=== PATIENT | female | born 1965 | race Caucasian/White ===

== ENCOUNTER 2018-01-23 02:09 | Emergency (ER) | payer MEDICAID ==
[~2018-01-23] VITALS: Ht 160 cm; Wt 67.0 kg
[~2018-01-23 02:09] MED LIST: ALBU8.5H4 IH; NO HOME MEDS
[2018-01-23 02:12] VITALS: BP 98/60
[2018-01-23] MEDS ORDERED: NAPR-56 PO ×2 (03:04→03:32)
[2018-01-23] MEDS ORDERED: naproxen 500mg tablet PO ONE (03:20)
[2018-01-23] MEDS ORDERED: HYDROcodone/acetaminophen 10/325mg tab PO ONE (03:20)
[2018-01-23] MEDS ORDERED: cyclobenzaprine 10mg tablet PO ONE (03:30)
[2018-01-23] MEDS ORDERED: CYCL-1 PO (03:32)
[2018-01-23] MEDS ORDERED: HYDR-4383 PO (03:32)
== END 2018-01-23 03:43 | disposition home or self-care (01) ==
LOC: ER 02:10
DX: S20.211A Contusion of right front wall of thorax, initial encounter (principal); Z79.899 Other long term (current) drug therapy; V19.9XXA Pedal cyclist (driver) (passenger) injured in unspecified traffic accident, initial encounter; Y93.89 Activity, other specified; Y92.488 Other paved roadways as the place of occurrence of the external cause; Y99.8 Other external cause status
CPT/HCPCS: 71100; 99284

== ENCOUNTER 2019-05-19 17:11 | Emergency (ER) | payer MEDICAID ==
[~2019-05-19] VITALS: Ht 157.5 cm; Wt 80.0 kg
[~2019-05-19 17:11] MED LIST changes: +CYCL-1 PO; +HYDR-4383 PO
[2019-05-19] MEDS ORDERED: ondansetron/PF 4mg/2ml inj IV ONE (17:40)
[2019-05-19] MEDS ORDERED: normal saline 1000ml 1,000 ML IV ONE (17:40)
[2019-05-19] MEDS ORDERED: morphine 4 MG/ML inj SYRINge IV ONE (17:40)
[2019-05-19 18:16] LABS: URINE HCG NEGATIVE (NEG)
[2019-05-19 18:16] LABS: BASOPHILS # (AUTO) 0.1 X10'3 (0-0.2); BASOPHILS % (AUTO) 0.7 % (0-1); EOSINOPHILS % (AUTO) 0.1 % (0-6); HEMATOCRIT 40.9 % (35.0-45.0); HEMOGLOBIN 13.8 g/dl (12.0-16.0); LYMPHOCYTES # (AUTO) 0.7 X10'3 (1.1-4.8); LYMPHOCYTES % (AUTO) 3.8 % (21-51); MEAN CORPUSCULAR HEMOGLOBIN 31.1 PG (27.0-31.0); MEAN CORPUSCULAR HGB CONC 33.7 g/dL (33.0-36.5); MEAN CORPUSCULAR VOLUME 92.1 FL (78-98); MONOCYTES # (AUTO) 0.6 X10'3 (0-0.9); MONOCYTES % (AUTO) 3.6 % (2-12); NEUTROPHILS # (AUTO) 16.4 X10'3 (1.8-7.7); NEUTROPHILS % (AUTO) 91.8 % (42-75); PLATELET COUNT 293 X10'3 (140-440); RED BLOOD COUNT 4.44 X10'6 (4.20-5.60); RED CELL DISTRIBUTION WIDTH 13.4 % (11.5-14.5); WHITE BLOOD COUNT 17.8 X10'3 (4.5-11.0)
[2019-05-19 18:17] LABS: CLARITY,URINE CLEAR (Clear); COLOR,URINE YELLOW (Yellow); GLUCOSE, URINE NEGATIVE (Neg); KETONES,URINE NEGATIVE (Neg); LEUKOCYTE ESTERASE ,URINE NEGATIVE (Neg); NITRITES, URINE NEGATIVE (Neg); OCCULT BLOOD,URINE MODERATE (Neg); PROTEIN,URINE NEGATIVE (Neg); UROBILINOGEN,URINE 0.2 E.U/dL (0.2-1.0)
[2019-05-19 18:20] LABS: UA COLLECTION TYPE CLN CATCH MIDSTREAM
[2019-05-19 18:25] LABS: BACTERIA,URINE FEW /HPF (Neg); SQUAMOUS EPITHELIAL CELL,UR FEW /LPF (FEW); WBC,URINE 0-4 /HPF (0-4)
[2019-05-19 18:30] LABS: ALANINE AMINOTRANSFERASE 25 U/L (12-78); ALBUMIN 3.7 G/DL (3.4-5.0); ALBUMIN/GLOBULIN RATIO 1.1 (1.1-1.5); ALKALINE PHOSPHATASE 71 IU/L (46-116); ANION GAP 7 (8-16); ASPARTATE AMINO TRANSFERASE 26 U/L (10-37); BILIRUBIN,TOTAL 0.4 MG/DL (0.1-1.0); BLOOD UREA NITROGEN 11 MG/DL (7-18); BUN/CREATININE RATIO 15.1 (6.6-38.0); CALCIUM 9.2 MG/DL (8.5-10.1); CHLORIDE 104 MMOL/L (99-107); CREATININE 0.73 MG/DL (0.40-0.90); GLUCOSE 114 MG/DL (70-104); LIPASE 108 U/L (73-393); POTASSIUM 3.9 MMOL/L (3.5-5.1); SODIUM 139 MMOL/L (135-145); TOTAL CARBON DIOXIDE 28.3 MMOL/L (24-32); eGFR 83 ML/MIN
[2019-05-19] MEDS ORDERED: amox tr/potassium clavulanate 875/125mg TAB PO ONE (19:20)
[2019-05-19] MEDS ORDERED: ketorolac trometh. 30mg/ml inj. IV ONE (19:20)
[2019-05-19] MEDS ORDERED: CefTRIAXone 2gm/D5W 50ml 50 ML IV ONE (19:20)
[2019-05-19] MEDS ORDERED: AMOX-422 PO (19:26)
[2019-05-19] MEDS ORDERED: ONDA8TAB6 PO (19:26)
[2019-05-19] MEDS ORDERED: HYDR-3965 PO (19:26)
[2019-05-19 20:04] VITALS: BP 95/66
== END 2019-05-19 20:09 | disposition home or self-care (01) ==
LOC: ER 17:11
DX: K57.92 Diverticulitis of intestine, part unspecified, without perforation or abscess without bleeding (principal); Z79.899 Other long term (current) drug therapy
CPT/HCPCS: 36415; 74176; 80053; 81001; 81025; 83605; 83690; 85025; 96365; 96375; 99284; J0696; J1885; J2405; J7030

== ENCOUNTER 2019-09-02 00:12 | Emergency (ER) | payer MEDICAID ==
[~2019-09-02] VITALS: Ht 160 cm; Wt 70.0 kg
[~2019-09-02 00:12] MED LIST changes: +ONDA8TAB6 PO
[2019-09-02] MEDS ORDERED: normal saline 1000ML IV soln IVB ONE (01:30)
[2019-09-02] MEDS ORDERED: ondansetron/PF 4mg/2ml inj IV ONE (01:30)
[2019-09-02] MEDS ORDERED: morphine 4 MG/ML inj SYRINge IV PRN (01:30)
[2019-09-02 02:03] LABS: CLARITY,URINE CLOUDY (Clear); COLOR,URINE YELLOW (Yellow); GLUCOSE, URINE NEGATIVE (Neg); KETONES,URINE 15 mg/dl (Neg); LEUKOCYTE ESTERASE ,URINE NEGATIVE (Neg); NITRITES, URINE NEGATIVE (Neg); OCCULT BLOOD,URINE LARGE (Neg); PROTEIN,URINE NEGATIVE (Neg); UROBILINOGEN,URINE 0.2 E.U/dL (0.2-1.0)
[2019-09-02 02:04] LABS: UA COLLECTION TYPE CLN CATCH MIDSTREAM
[2019-09-02 02:10] LABS: BASOPHILS # (AUTO) 0.1 X10'3 (0-0.2); BASOPHILS % (AUTO) 0.9 % (0-1); EOSINOPHILS # (AUTO) 0.2 X10'3 (0-0.9); EOSINOPHILS % (AUTO) 1.9 % (0-6); HEMATOCRIT 38.4 % (35.0-45.0); HEMOGLOBIN 12.8 g/dl (12.0-16.0); LYMPHOCYTES # (AUTO) 1.7 X10'3 (1.1-4.8); LYMPHOCYTES % (AUTO) 13.3 % (21-51); MEAN CORPUSCULAR HEMOGLOBIN 31.4 PG (27.0-31.0); MEAN CORPUSCULAR HGB CONC 33.3 g/dL (33.0-36.5); MEAN CORPUSCULAR VOLUME 94.3 FL (78-98); MEAN PLATELET VOLUME 8.3 FL (7.4-10.4); NEUTROPHILS # (AUTO) 9.9 X10'3 (1.8-7.7); NEUTROPHILS % (AUTO) 75.9 % (42-75); PLATELET COUNT 290 X10'3 (140-440); RED BLOOD COUNT 4.07 X10'6 (4.20-5.60); RED CELL DISTRIBUTION WIDTH 13.7 % (11.5-14.5)
[2019-09-02 02:13] LABS: ALANINE AMINOTRANSFERASE 22 U/L (12-78); ALBUMIN 3.6 G/DL (3.4-5.0); ALKALINE PHOSPHATASE 88 IU/L (46-116); ANION GAP 10 (8-16); ASPARTATE AMINO TRANSFERASE 25 U/L (10-37); BILIRUBIN,TOTAL 0.5 MG/DL (0.1-1.0); BLOOD UREA NITROGEN 13 MG/DL (7-18); BUN/CREATININE RATIO 15.1 (6.6-38.0); CALCIUM 8.8 MG/DL (8.5-10.1); CHLORIDE 105 MMOL/L (99-107); CREATININE 0.86 MG/DL (0.40-0.90); GLUCOSE 100 MG/DL (70-104); LIPASE 105 U/L (73-393); POTASSIUM 4.3 MMOL/L (3.5-5.1); SODIUM 140 MMOL/L (135-145); TOTAL CARBON DIOXIDE 25.2 MMOL/L (24-32); TOTAL PROTEIN 7.1 G/DL (6.4-8.2); eGFR 69 ML/MIN
[2019-09-02] MEDS ORDERED: CIPR-259 PO (02:14)
[2019-09-02] MEDS ORDERED: METR500T PO (02:14)
[2019-09-02 02:26] LABS: WBC,URINE 0-4 /HPF (0-4)
[2019-09-02 02:27] LABS: AMORPHOUS PHOSPHATES 3+; BACTERIA,URINE NONE SEEN /HPF (Neg); MUCUS STRANDS NONE SEEN /LPF (Neg); RBC,URINE 20-50 /HPF (0-2); SQUAMOUS EPITHELIAL CELL,UR FEW /LPF (FEW)
[2019-09-02 02:44] VITALS: BP 105/58
[2019-09-02 06:22] LABS: OCCULT BLOOD STOOL NEGATIVE (Neg)
== END 2019-09-02 02:46 | disposition home or self-care (01) ==
LOC: ER 00:12
DX: K57.32 Diverticulitis of large intestine without perforation or abscess without bleeding (principal); R10.32 Left lower quadrant pain; R19.7 Diarrhea, unspecified; K59.00 Constipation, unspecified; Z87.01 Personal history of pneumonia (recurrent); Z79.2 Long term (current) use of antibiotics; Z79.899 Other long term (current) drug therapy
CPT/HCPCS: 36415; 74176; 80053; 81001; 82272; 83690; 85025; 96361; 96374; 99284; J2405; J7030

== ENCOUNTER 2020-08-28 21:17 | Emergency (ER) | payer MEDICAID ==
[~2020-08-28] VITALS: Ht 160 cm; Wt 67.4 kg
[2020-08-28 21:51] VITALS: BP 109/61
--- NOTE | 2020-08-28 22:48 | NUR ---
Pt. is refusing to give any information about the location the dog bite occurred or any information about the dog that bit her. Pt. only states "it was an old dog" and "I know it doesn't have rabies"
[2020-08-28] MEDS ORDERED: HYDROcodone/acetaminophen 10/325mg tab PO ONE (23:00)
[2020-08-28] MEDS ORDERED: amox tr/potassium clavulanate 875/125mg TAB PO ONE (23:00)
[2020-08-28] MEDS ORDERED: TETanus/Pertussis (Acell)/Diphther VAC/PF (Tdap-Adult) 0.5ml syringe IMVAC ONE (23:00)
[2020-08-28] MEDS ORDERED: LIDOcaine 1% W/epiNEPHrine 1:100,000 20ml vial SQ ONE (23:00)
[2020-08-29] MEDS ORDERED: amox tr/potassium clavulanate 875/125mg TAB PO ONE (02:45)
[2020-08-29] MEDS ORDERED: AMOX-422 PO (02:52)
[2020-08-29] MEDS ORDERED: ACET-1008 PO (03:44)
== END 2020-08-29 04:15 | disposition home or self-care (01) ==
LOC: ER 21:18
DX: S61.211A Laceration without foreign body of left index finger without damage to nail, initial encounter (principal); F17.200 Nicotine dependence, unspecified, uncomplicated; F15.90 Other stimulant use, unspecified, uncomplicated; Z20.3 Contact with and (suspected) exposure to rabies; Z87.01 Personal history of pneumonia (recurrent); Z79.2 Long term (current) use of antibiotics; Z79.899 Other long term (current) drug therapy; W54.0XXA Bitten by dog, initial encounter; Y93.89 Activity, other specified; Y92.89 Other specified places as the place of occurrence of the external cause; Y99.8 Other external cause status
CPT/HCPCS: 12002; 73140; 90471; 90715; 99283

== ENCOUNTER 2022-03-16 11:58 | Emergency (ER) | payer MEDICAID ==
[~2022-03-16] VITALS: Ht 160 cm; Wt 69.1 kg
[~2022-03-16 11:58] MED LIST changes: +HYDR-3965 PO; +ONDA4TAB12 PO
[2022-03-16 12:48] VITALS: BP 112/42
== END 2022-03-16 14:54 | disposition home or self-care (01) ==
LOC: ER 11:58
DX: S52.591G Other fractures of lower end of right radius, subsequent encounter for closed fracture with delayed healing (principal); X58.XXXD Exposure to other specified factors, subsequent encounter; F15.10 Other stimulant abuse, uncomplicated
CPT/HCPCS: 29125; 99284

== ENCOUNTER 2022-09-21 16:24 | Inpatient (IN) | payer MEDICAID ==
[~2022-09-21] VITALS: Ht 160 cm; Wt 67.2 kg
[~2022-09-21 16:24] MED LIST changes: -HYDR-3965 PO
[2022-09-21 17:04] LABS: URINE HCG NEGATIVE (NEG)
[2022-09-21 17:13] LABS: BASOPHILS # (AUTO) 0.1 X10'3 (0-0.2); BASOPHILS % (AUTO) 0.5 % (0-1); EOSINOPHILS % (AUTO) 0 % (0-6); HEMATOCRIT 38.1 % (35.0-45.0); HEMOGLOBIN 12.7 g/dl (12.0-16.0); LYMPHOCYTES # (AUTO) 0.8 X10'3 (1.1-4.8); LYMPHOCYTES % (AUTO) 4.1 % (21-51); MEAN CORPUSCULAR HEMOGLOBIN 30.7 PG (27.0-31.0); MEAN CORPUSCULAR HGB CONC 33.2 g/dL (33.0-36.5); MEAN CORPUSCULAR VOLUME 92.4 FL (78-98); MEAN PLATELET VOLUME 8.4 FL (7.4-10.4); MONOCYTES # (AUTO) 0.3 X10'3 (0-0.9); MONOCYTES % (AUTO) 1.8 % (2-12); NEUTROPHILS # (AUTO) 17.4 X10'3 (1.8-7.7); NEUTROPHILS % (AUTO) 93.6 % (42-75); PLATELET COUNT 280 X10'3 (140-440); RED BLOOD COUNT 4.12 X10'6 (4.20-5.60); RED CELL DISTRIBUTION WIDTH 13.7 % (11.5-14.5); WHITE BLOOD COUNT 18.6 X10'3 (4.5-11.0)
[2022-09-21 17:16] LABS: CLARITY,URINE CLOUDY (Clear); COLOR,URINE YELLOW (Yellow); GLUCOSE, URINE NEGATIVE (Neg); KETONES,URINE 15 mg/dl (Neg); LEUKOCYTE ESTERASE ,URINE NEGATIVE (Neg); NITRITES, URINE NEGATIVE (Neg); OCCULT BLOOD,URINE LARGE (Neg); PROTEIN,URINE 100 mg/dl (Neg)
[2022-09-21 17:19] LABS: ALANINE AMINOTRANSFERASE 17 U/L (12-78); ALBUMIN 2.6 G/DL (3.4-5.0); ALBUMIN/GLOBULIN RATIO 0.7 (1.1-1.5); ALKALINE PHOSPHATASE 87 IU/L (46-116); ANION GAP 11 (8-16); ASPARTATE AMINO TRANSFERASE 14 U/L (10-37); BILIRUBIN,TOTAL 0.3 MG/DL (0.1-1.0); BLOOD UREA NITROGEN 14 MG/DL (7-18); BUN/CREATININE RATIO 14.9 (10.0-20.0); CHLORIDE 98 MMOL/L (99-107); CREATININE 0.94 MG/DL (0.40-0.90); GLUCOSE 155 MG/DL (70-104); LIPASE < 50 U/L (73-393); POTASSIUM 3.8 MMOL/L (3.5-5.1); SODIUM 132 MMOL/L (135-145); TOTAL CARBON DIOXIDE 23.2 MMOL/L (24-32); TOTAL PROTEIN 6.5 G/DL (6.4-8.2); eGFR 61 ML/MIN
[2022-09-21 17:21] LABS: UA COLLECTION TYPE CLN CATCH MIDSTREAM
[2022-09-21 17:25] LABS: SQUAMOUS EPITHELIAL CELL,UR FEW /LPF (FEW)
[2022-09-21 17:27] LABS: CALCIUM 8.8 MG/DL (8.5-10.1)
[2022-09-21 17:37] LABS: FINE GRANULAR CAST 0-3 /LPF (NEGATIVE); MUCUS STRANDS MODERATE /LPF (Neg)
[2022-09-21 17:40] LABS: BACTERIA,URINE 1+ /HPF (Neg); RBC,URINE 50-100 /HPF (0-2)
[2022-09-21 17:41] LABS: TRANSITIONAL EPI CELLS,URINE FEW /HPF; WBC,URINE 0-4 /HPF (0-4)
[2022-09-21 18:12] LABS: TOTAL CELLS COUNTED 100
[2022-09-21 18:14] LABS: PLATELET ESTIMATE NORMAL
[2022-09-21 18:17] LABS: LARGE PLATELETS FEW
[2022-09-21] MEDS ORDERED: normal saline 1000ml 1,000 ML IV ONE (20:00)
[2022-09-21] MEDS ORDERED: ketorolac tromethamine 15mg/ml inj. IV ONE (20:00)
[2022-09-21] MEDS ORDERED: HYDROmorphone 1 mg/ml syringe IV ONE (20:00)
[2022-09-21] MEDS ORDERED: pantoprazole 40 MG vial IV ONE (20:00)
[2022-09-21] MEDS ORDERED: normal saline 1000ML IV soln IVB ONE (20:00)
[2022-09-21] MEDS ORDERED: iohexol 300mg/ml 100ml inj. ONE (20:07)
[2022-09-21] MEDS ORDERED: pantoprazole 40 MG/NS 100ML add-vantage BAG IV ONE (20:20)
[2022-09-21 20:44] LABS: APTT 35 SECONDS (22-32)
[2022-09-21 20:45] LABS: ETHANOL < 0.010 GM/DL (0.0-0.010); MAGNESIUM 1.9 MG/DL (1.5-2.4)
[2022-09-21 20:59] LABS: URINE AMPHETAMINE SCREEN POSITIVE (Neg); URINE BARBITUATE SCREEN NEGATIVE (Neg); URINE BENZODIAZEPINES SCREEN NEGATIVE (Neg); URINE CANNABINOID SCREEN NEGATIVE (Neg); URINE COCAINE SCREEN NEGATIVE (Neg); URINE METHADONE SCREEN NEGATIVE (Neg); URINE OPIATE SCREEN POSITIVE (Neg); URINE PHENCYCLIDINE SCREEN NEGATIVE (Neg)
[2022-09-21] MEDS ORDERED: piperacillin/tazo 3.375gm/50ml 50 ML IV ONE (21:00)
[2022-09-21] MEDS ORDERED: temazepam 15mg capsule PO PRN (21:00)
[2022-09-21 21:03] LABS: C-REACTIVE PROTEIN 37.09 MG/DL (0.0-0.5)
[2022-09-21] MEDS ORDERED: LORazepam 0.5 MG tablet PO PRN (22:15)
[2022-09-21] MEDS ORDERED: HYDROmorphone inj. 0.5 MG/0.5 ML DISP.SYRIN IV PRN (22:15)
[2022-09-21] MEDS ORDERED: acetaminophen 325mg tablet PO PRN ×2 (22:15)
[2022-09-21] MEDS ORDERED: mag hydrox/Alum hydrox/simeth 30ml oral suspension PO PRN (22:15)
[2022-09-21] MEDS ORDERED: HYDROcodone/acetaminophen 10/325mg tab PO PRN (22:15)
[2022-09-21] MEDS ORDERED: LORazepam 2 mg/ml vial IV PRN (22:15)
[2022-09-21] MEDS ORDERED: magnesium 2GM in 50ml NS 50 ML IV PRN (22:15)
[2022-09-21] MEDS ORDERED: ondansetron/PF 4mg/2ml inj IV PRN (22:15)
[2022-09-21] MEDS: normal saline 1000ml 1,000 ML IV SCH (22:15)
[2022-09-21] MEDS ORDERED: magnesium hydroxide 30ml (MOM) UD suspension PO PRN (22:15)
[2022-09-21] MEDS ORDERED: magnesium Cl slow-release 64mg tablet PO PRN (22:15)
[2022-09-21] MEDS ORDERED: bisacodyl 10mg suppository rectal RC PRN (22:15)
[2022-09-21] MEDS ORDERED: potassium Cl 20 mEq SR tablet PO PRN ×2 (22:15)
[2022-09-21] MEDS ORDERED: ondansetron 4mg rapidly disintigrating tab PO PRN (22:15)
[2022-09-21] MEDS ORDERED: HYDROmorphone/PF 0.2 MG/ML SYRINGE IV PRN (22:15)
[2022-09-21] MEDS ORDERED: magnesium 4gm in 100ml NS 100 ML IV PRN (22:15)
[2022-09-21] MEDS ORDERED: potassium Cl 40MEQ/1/2NS 520ml 520 ML IV PRN (22:15)
[2022-09-21] MEDS ORDERED: HYDROcodone/acetaminophen 5mg/325mg tablet PO PRN (22:15)
[2022-09-21] MEDS ORDERED: azithromycin/NS 500mg/250ml 250 ML IV ONE (22:55)
[2022-09-22] VITALS (9 sets, daily range): BP systolic 75–99; BP diastolic 39–59; PULSE 68–78; RESP 14–20; TEMP 97.7–98.9; O2SAT 94–98
--- NOTE | 2022-09-22 00:50 | NUR ---
PT ARRIVED FROM ER. PT AMBULATED TO BED. NO DIZZINESS REPORTED. PT HAS BEEN ORIENTED TO THE ROOM. RECEIVED REPORT FROM KYLEIGH MATAMOROS PRIOR TO PT'S ARRIVAL.
--- NOTE | 2022-09-22 01:54 | NUR ---
MESSAGE: [id number] VENKAT BORREGO 57. HAVING LOW BP. AFTER 250ML BOLUS NOT MUCH CHANGE. 75/40 HR67. PT ASYMPTOMATIC, STATING HER BP RUNS USUALLY LOW. WOULD YOU SUGGEST MROE BOLUS? THANK YOU. 2235 LORA
[2022-09-22] MEDS ORDERED: normal saline 1000ml 1,000 ML IVB ONE (02:35)
[2022-09-22 06:10] LABS: BASOPHILS % (AUTO) 0.1 % (0-1); EOSINOPHILS % (AUTO) 0.3 % (0-6); HEMOGLOBIN 10.5 g/dl (12.0-16.0); LYMPHOCYTES # (AUTO) 0.8 X10'3 (1.1-4.8); MEAN CORPUSCULAR HGB CONC 32.9 g/dL (33.0-36.5); MEAN CORPUSCULAR VOLUME 94.3 FL (78-98); MEAN PLATELET VOLUME 8.7 FL (7.4-10.4); MONOCYTES # (AUTO) 0.5 X10'3 (0-0.9); MONOCYTES % (AUTO) 4.4 % (2-12); NEUTROPHILS # (AUTO) 10.8 X10'3 (1.8-7.7); NEUTROPHILS % (AUTO) 88.2 % (42-75); PLATELET COUNT 217 X10'3 (140-440); RED BLOOD COUNT 3.39 X10'6 (4.20-5.60); RED CELL DISTRIBUTION WIDTH 14.2 % (11.5-14.5); WHITE BLOOD COUNT 12.2 X10'3 (4.5-11.0)
--- NOTE | 2022-09-22 06:17 | NUR ---
Patient in room [facility] 4023. I have received report from KYLEIGH Garcia and had the opportunity to ask questions and assume patient care.
[2022-09-22 06:21] LABS: ALANINE AMINOTRANSFERASE 10 U/L (12-78); ALBUMIN 1.9 G/DL (3.4-5.0); ALBUMIN/GLOBULIN RATIO 0.6 (1.1-1.5); ALKALINE PHOSPHATASE 76 IU/L (46-116); ANION GAP 9 (8-16); ASPARTATE AMINO TRANSFERASE 14 U/L (10-37); BILIRUBIN,TOTAL 0.2 MG/DL (0.1-1.0); BLOOD UREA NITROGEN 13 MG/DL (7-18); BUN/CREATININE RATIO 19.4 (10.0-20.0); CALCIUM 7.3 MG/DL (8.5-10.1); CHLORIDE 108 MMOL/L (99-107); CREATININE 0.67 MG/DL (0.40-0.90); GLUCOSE 89 MG/DL (70-104); MAGNESIUM 1.8 MG/DL (1.5-2.4); PHOSPHORUS 2.7 MG/DL (2.3-4.5); POTASSIUM 3.6 MMOL/L (3.5-5.1); SODIUM 137 MMOL/L (135-145); eGFR 90 ML/MIN
--- NOTE | 2022-09-22 06:29 | NUR ---
Problems reprioritized. Patient report given, questions answered & plan of care reviewed with KYLEIGH SEGOVIA.
--- NOTE | 2022-09-22 06:42 | NUR ---
Pt low. Went to recheck and pt states, "my blood pressure is always low." When asked if patient is dizzy or lightheaded pt states she is "always dizzy." notified. PAGER ID: [phone] MESSAGE: [id number]- Ian Cantu- had 1L bolus about 3 hours ago BP still low 86/42. Was 75/43 prior to bolus. Pt reports BP is "always low" and "always dizzy."- Caitlin [phone]
[2022-09-22] MEDS: normal saline 1000ml 1,000 ML IV SCH ×3 (06:55→23:43)
[2022-09-22] MEDS: piperacillin/tazo 3.375gm/50ml 50 ML IV SCH ×4 (07:50→23:41)
[2022-09-22] MEDS: docusate sod 100mg capsule PO SCH ×2 (07:50→19:56)
[2022-09-22] MEDS: K and/or MAG REPLACEMENT MC SCH ×2 (08:00→20:00)
--- NOTE | 2022-09-22 08:45 | NUR ---
Dr. Andersen in to see patient and aware of patients low BP and dizziness. Per patient and Dr. Andersen "it's not new." No new orders.
--- NOTE | 2022-09-22 10:01 | NUR ---
Patient down to MRI
--- NOTE | 2022-09-22 10:41 | NUR ---
patient back to room
--- NOTE | 2022-09-22 13:31 | NUR ---
Received order for consult. Met with patient for substance use and to see if patient was interested in resources for treatment options. Patient is interested in outpatient resources. I gave patient a list of outpatient treatment options, a card for [facility] and my card to call me with any questions.
--- NOTE | 2022-09-22 14:48 | NUR ---
PAGER ID: [phone] MESSAGE: [phone]- Ian Gilmore- pt asking if she can have a diet order. states "the head ladies said I could." MRCP results in. - Caitlin [phone]
[2022-09-22] MEDS: azithromycin/NS 500mg/250ml 250 ML IV SCH (21:30)
[2022-09-23 06:00] VITALS: BP 93/49; PULSE 75; RESP 18; TEMP 99; O2SAT 96
[2022-09-23 06:13] LABS: ALANINE AMINOTRANSFERASE 13 U/L (12-78); ALBUMIN 1.8 G/DL (3.4-5.0); ALBUMIN/GLOBULIN RATIO 0.6 (1.1-1.5); ALKALINE PHOSPHATASE 66 IU/L (46-116); ANION GAP 11 (8-16); ASPARTATE AMINO TRANSFERASE 12 U/L (10-37); BASOPHILS % (AUTO) 0.5 % (0-1); BILIRUBIN,TOTAL 0.1 MG/DL (0.1-1.0); BLOOD UREA NITROGEN 11 MG/DL (7-18); BUN/CREATININE RATIO 17.2 (10.0-20.0); CALCIUM 8.2 MG/DL (8.5-10.1); CHLORIDE 112 MMOL/L (99-107); CREATININE 0.64 MG/DL (0.40-0.90); EOSINOPHILS # (AUTO) 0.2 X10'3 (0-0.9); EOSINOPHILS % (AUTO) 1.8 % (0-6); GLUCOSE 95 MG/DL (70-104); HEMATOCRIT 34.1 % (35.0-45.0); HEMOGLOBIN 11.3 g/dl (12.0-16.0); LYMPHOCYTES # (AUTO) 1.6 X10'3 (1.1-4.8); MAGNESIUM 1.6 MG/DL (1.5-2.4); MEAN CORPUSCULAR HGB CONC 33.3 g/dL (33.0-36.5); MEAN CORPUSCULAR VOLUME 93.2 FL (78-98); MEAN PLATELET VOLUME 8.5 FL (7.4-10.4); MONOCYTES # (AUTO) 0.7 X10'3 (0-0.9); MONOCYTES % (AUTO) 8.1 % (2-12); NEUTROPHILS # (AUTO) 6.2 X10'3 (1.8-7.7); NEUTROPHILS % (AUTO) 71.6 % (42-75); PHOSPHORUS 2.6 MG/DL (2.3-4.5); PLATELET COUNT 290 X10'3 (140-440); POTASSIUM 3.5 MMOL/L (3.5-5.1); RED BLOOD COUNT 3.66 X10'6 (4.20-5.60); RED CELL DISTRIBUTION WIDTH 14.5 % (11.5-14.5); SODIUM 144 MMOL/L (135-145); TOTAL CARBON DIOXIDE 21.4 MMOL/L (24-32); WHITE BLOOD COUNT 8.6 X10'3 (4.5-11.0); eGFR > 90 ML/MIN
--- NOTE | 2022-09-23 06:18 | NUR ---
Problems reprioritized. Patient report given, questions answered & plan of care reviewed with ASHOK Guzman.
--- NOTE | 2022-09-23 06:20 | NUR ---
Patient in room [facility]TH[facility] 4023. I have received report from Isaac ARIZMENDI and had the opportunity to ask questions and assume patient care.
[2022-09-23] MEDS: docusate sod 100mg capsule PO SCH ×2 (08:00→20:00)
[2022-09-23] MEDS: K and/or MAG REPLACEMENT MC SCH ×2 (08:00→20:00)
--- NOTE | 2022-09-23 08:07 | NUR ---
PAGER ID: [phone] MESSAGE: [id number]- Sisi Cantu- Is patient needing a HIDA scan? Pt has been NPO since MN. No orders in for this scan. Ps advise? LAZ Guzman [phone]
[2022-09-23] MEDS: piperacillin/tazo 3.375gm/50ml 50 ML IV SCH ×3 (08:17→23:55)
[2022-09-23] MEDS ORDERED: NORMAL SALINE IV ONE (08:20)
[2022-09-23] MEDS ORDERED: SINCALIDE IV ONE (08:20)
[2022-09-23] MEDS: normal saline 1000ml 1,000 ML IV SCH ×3 (08:30→21:49)
--- NOTE | 2022-09-23 15:25 | NUR ---
PAGER ID: [phone] MESSAGE: [id number]- Sisi Cantu- patient HIDA scan results are in the chart. Patient denies any pain. Tolerated diet well and wants to go home. Pls advise? LAZ Guzman [phone]
--- NOTE | 2022-09-23 16:04 | NUR ---
PAGER ID: [phone] MESSAGE: [id number]- Sisi Cantu- 2nd page: HIDA scan results are in chart. Patient would like the results and to be discharged. pls advise? LAZ stark [phone]
--- NOTE | 2022-09-23 16:27 | NUR ---
Dr. Andersen called and stated that the patient HIDA scan is neg and no sx. Patient can possibly be discharged tomorrow. I advised patient of this and patient verbalized understanding.
--- NOTE | 2022-09-23 17:00 | NUR ---
I have reviewed and agree with interventions, assessments, and documentation by Megan Zacarias LVN.
--- NOTE | 2022-09-23 17:28 | NUR ---
PAGER ID: [phone] MESSAGE: [id number]- Sisi Cantu- Patient is stating that she is needing to go home tonight or else she won't have a ride home tomorrow or be able to get into her house. Pls advise? LAZ Guzman [phone]
[2022-09-23 18:00] VITALS: BP 123/63; PULSE 84; RESP 15; TEMP 98.3; O2SAT 97
--- NOTE | 2022-09-23 18:19 | NUR ---
Problems reprioritized. Patient report given, questions answered & plan of care reviewed with Chiqui ARIZMENDI.
[2022-09-23 20:00] VITALS: RESP 15; O2SAT 97
[2022-09-23] MEDS: azithromycin/NS 500mg/250ml 250 ML IV SCH (21:49)
[2022-09-23 22:00] VITALS: BP 111/70; PULSE 71; RESP 15; TEMP 97.1; O2SAT 95
[2022-09-24 06:00] VITALS: BP 107/51; PULSE 64; RESP 14; TEMP 98.9; O2SAT 97
--- NOTE | 2022-09-24 06:17 | NUR ---
Problems reprioritized. Patient report given, questions answered & plan of care reviewed with Destiney ARIZMENDI. Addendum: 09/24/22 at 0617 by Chiqui Potts RN Amended: Links added.
--- NOTE | 2022-09-24 06:42 | NUR ---
Patient in room [facility]TH[facility] 4023. I have received report from Chiqui ARIZMENDI, and had the opportunity to ask questions and assume patient care.
[2022-09-24 06:51] LABS: ALANINE AMINOTRANSFERASE 14 U/L (12-78); ALBUMIN/GLOBULIN RATIO 0.6 (1.1-1.5); ALKALINE PHOSPHATASE 69 IU/L (46-116); ANION GAP 8 (8-16); ASPARTATE AMINO TRANSFERASE 15 U/L (10-37); BILIRUBIN,TOTAL 0.2 MG/DL (0.1-1.0); BLOOD UREA NITROGEN 8 MG/DL (7-18); BUN/CREATININE RATIO 11.9 (10.0-20.0); CALCIUM 8.1 MG/DL (8.5-10.1); CHLORIDE 110 MMOL/L (99-107); CREATININE 0.67 MG/DL (0.40-0.90); GLUCOSE 103 MG/DL (70-104); MAGNESIUM 1.5 MG/DL (1.5-2.4); PHOSPHORUS 3.6 MG/DL (2.3-4.5); POTASSIUM 3.3 MMOL/L (3.5-5.1); SODIUM 143 MMOL/L (135-145); TOTAL CARBON DIOXIDE 24.7 MMOL/L (24-32); TOTAL PROTEIN 5.4 G/DL (6.4-8.2); eGFR 90 ML/MIN
[2022-09-24 06:56] LABS: BASOPHILS % (AUTO) 0.4 % (0-1); EOSINOPHILS # (AUTO) 0.2 X10'3 (0-0.9); EOSINOPHILS % (AUTO) 2.6 % (0-6); HEMOGLOBIN 11.2 g/dl (12.0-16.0); LYMPHOCYTES # (AUTO) 1.8 X10'3 (1.1-4.8); LYMPHOCYTES % (AUTO) 21.9 % (21-51); MEAN CORPUSCULAR HEMOGLOBIN 30.7 PG (27.0-31.0); MONOCYTES # (AUTO) 0.8 X10'3 (0-0.9); MONOCYTES % (AUTO) 9.8 % (2-12); NEUTROPHILS # (AUTO) 5.3 X10'3 (1.8-7.7); NEUTROPHILS % (AUTO) 65.3 % (42-75); PLATELET COUNT 334 X10'3 (140-440); RED BLOOD COUNT 3.66 X10'6 (4.20-5.60); RED CELL DISTRIBUTION WIDTH 14.4 % (11.5-14.5); WHITE BLOOD COUNT 8.2 X10'3 (4.5-11.0)
[2022-09-24] MEDS: piperacillin/tazo 3.375gm/50ml 50 ML IV SCH (07:27)
[2022-09-24] MEDS: normal saline 1000ml 1,000 ML IV SCH (07:30)
[2022-09-24 08:00] VITALS: RESP 14; O2SAT 97
[2022-09-24] MEDS: docusate sod 100mg capsule PO SCH (08:00)
[2022-09-24] MEDS: K and/or MAG REPLACEMENT MC SCH (08:37)
--- NOTE | 2022-09-24 09:31 | NUR ---
Initial: Pt admit for RLL PNA, possible cholecystitis, leukocytosis, and ASIYA with hyponatremia. Per physician note pt with CBD dilation without elevation of LFTs and possible sepsis secondary to PNA. Pt on a regular diet and eating well, documented with 100% PO intake since admit meeting estimated nutrient needs. LBM 09/24 per EMR. Pt with routine bowel care available however documented to be refusing. No nutrition intervention implemented at this time. Will continue to follow and make recommendations as appropriate. Recommendations: 1) Continue regular diet 2) Monitor need for additional protein 3) Bowel care per rx 4) Weekly scaled weights Addendum: 09/24/22 at [address] Amended: Links added.
[2022-09-24 10:00] VITALS: BP 112/61; PULSE 78; RESP 14; TEMP 98.4; O2SAT 98
[2022-09-24] MEDS ORDERED: LEVO-65 PO (10:00)
--- NOTE | 2022-09-24 10:34 | NUR ---
patient is stable and IV was discontinued. Pt went over discharge paperwork and verbalized understanding that she needed to make an appointment with her PCP in 1 week and of her new medication that was sent to her pharmacy. There was highlighted information in her dc paperwork for her to easily refer to about her care here at the hospital and labwork done. Patient was wheelchaired to lobby with all her belongings and picked up in a private vehicle by her son.
== END 2022-09-24 10:30 | disposition home or self-care (01) | DRG 720 ==
LOC: ER 16:25 → ED HOLD 22:20 → EDBEDREQ 23:09 → ORTHO 4S 09-22 00:50
PROVIDERS: ADMIT Family Medicine; ATTEND Family Medicine
PROC: BW211ZZ Computerized Tomography (CT Scan) of Abdomen and Pelvis using Low Osmolar Contrast (ICD-10-PCS; 2022-09-21)
PROC: CF1C1ZZ Planar Nuclear Medicine Imaging of Hepatobiliary System, All using Technetium 99m (Tc-99m) (ICD-10-PCS; principal; 2022-09-23)
DX: A41.9 Sepsis, unspecified organism (principal); J18.9 Pneumonia, unspecified organism; K83.09 Other cholangitis; N17.9 Acute kidney failure, unspecified; E87.1 Hypo-osmolality and hyponatremia; K81.9 Cholecystitis, unspecified; F15.10 Other stimulant abuse, uncomplicated; F17.210 Nicotine dependence, cigarettes, uncomplicated; M54.9 Dorsalgia, unspecified; R79.82 Elevated C-reactive protein (CRP); Z79.899 Other long term (current) drug therapy; Z71.6 Tobacco abuse counseling; Z71.51 Drug abuse counseling and surveillance of drug abuser
CPT/HCPCS: 36415; 71045; 74177; 74181; 76700; 78227; 80053; 80305; 80320; 81001; 81025; 83605; 83690; 83735; 84100; 84145; 85007; 85025; 85610; 85730; 86140; 87040; 87081; 99285; A9537; C9113; G0378; J0456; J1170; J1885; J2543; J2805; J3490; J7030; Q9967

== ENCOUNTER 2023-01-16 16:00 | Emergency (ER) | payer MEDICAID ==
[~2023-01-16] VITALS: Ht 157.5 cm; Wt 64.8 kg
[2023-01-16 16:09] VITALS: BP 138/93; PULSE 98; TEMP 98.3; O2SAT 95
[2023-01-16 17:39] VITALS: RESP 17
[2023-01-16] MEDS ORDERED: METH-798 PO (18:12)
[2023-01-16] MEDS ORDERED: NAPR-56 PO (18:12)
--- NOTE | 2023-01-16 22:01 | NUR ---
I have reviewed and agree with all interventions, assessments performed and documented by TRANSLATION DIRECTOR
== END 2023-01-16 18:21 | disposition home or self-care (01) ==
LOC: ER 16:01
DX: S20.212A Contusion of left front wall of thorax, initial encounter (principal); F15.90 Other stimulant use, unspecified, uncomplicated; Z98.890 Other specified postprocedural states; W19.XXXA Unspecified fall, initial encounter; Y93.89 Activity, other specified; Y92.89 Other specified places as the place of occurrence of the external cause; Y99.8 Other external cause status
CPT/HCPCS: 71045; 71100; 99284

== ENCOUNTER 2023-08-13 15:35 | Emergency (ER) | payer MEDICAID ==
[~2023-08-13] VITALS: Ht 160 cm; Wt 67.0 kg
[~2023-08-13 15:35] MED LIST changes: -ALBU8.5H4 IH; -CYCL-1 PO; -HYDR-4383 PO; +METH-798 PO; -NO HOME MEDS; -ONDA4TAB12 PO; -ONDA8TAB6 PO
[2023-08-13 15:36] VITALS: TEMP 97.7
[2023-08-13 16:19] LABS: BASOPHILS # (AUTO) 0.1 X10'3 (0-0.2); BASOPHILS % (AUTO) 0.7 % (0-1); EOSINOPHILS # (AUTO) 0.2 X10'3 (0-0.9); EOSINOPHILS % (AUTO) 1.9 % (0-6); HEMATOCRIT 38.2 % (35.0-45.0); HEMOGLOBIN 12.6 g/dl (12.0-16.0); LYMPHOCYTES # (AUTO) 1.7 X10'3 (1.1-4.8); MEAN CORPUSCULAR HEMOGLOBIN 30.8 PG (27.0-31.0); MEAN CORPUSCULAR HGB CONC 32.9 g/dL (33.0-36.5); MEAN CORPUSCULAR VOLUME 93.6 FL (78-98); MEAN PLATELET VOLUME 7.9 FL (7.4-10.4); MONOCYTES # (AUTO) 0.6 X10'3 (0-0.9); MONOCYTES % (AUTO) 5.4 % (2-12); NEUTROPHILS # (AUTO) 8.3 X10'3 (1.8-7.7); PLATELET COUNT 326 X10'3 (140-440); RED BLOOD COUNT 4.08 X10'6 (4.20-5.60); RED CELL DISTRIBUTION WIDTH 14.4 % (11.5-14.5); WHITE BLOOD COUNT 10.9 X10'3 (4.5-11.0)
[2023-08-13 16:26] LABS: ALANINE AMINOTRANSFERASE 22 U/L (12-78); ALBUMIN 3.4 G/DL (3.4-5.0); ALKALINE PHOSPHATASE 96 IU/L (46-116); ANION GAP 9 (8-16); ASPARTATE AMINO TRANSFERASE 21 U/L (10-37); BILIRUBIN,TOTAL 0.3 MG/DL (0.1-1.0); BLOOD UREA NITROGEN 17 MG/DL (7-18); BUN/CREATININE RATIO 20.2 (10.0-20.0); CALCIUM 8.3 MG/DL (8.5-10.1); CHLORIDE 106 MMOL/L (99-107); CREATININE 0.84 MG/DL (0.40-0.90); GLUCOSE 104 MG/DL (70-104); LIPASE 24 U/L (16-77); POTASSIUM 3.8 MMOL/L (3.5-5.1); SODIUM 138 MMOL/L (135-145); TOTAL CARBON DIOXIDE 23.2 MMOL/L (24-32); TOTAL PROTEIN 6.9 G/DL (6.4-8.2); eCRCL 60 ML/MIN; eGFR 69 ML/MIN
[2023-08-13] MEDS ORDERED: ondansetron 4mg/5ml UD cup PO STA (16:55)
[2023-08-13] MEDS ORDERED: FAMO-129 PO (17:03)
[2023-08-13] MEDS: ondansetron 4mg rapidly disintigrating tab PO ONE (17:05)
[2023-08-13 17:08] VITALS: BP 144/70; PULSE 56; RESP 18; O2SAT 99
== END 2023-08-13 17:17 | disposition home or self-care (01) ==
LOC: ER 15:35
DX: K29.00 Acute gastritis without bleeding (principal); F17.210 Nicotine dependence, cigarettes, uncomplicated; F15.90 Other stimulant use, unspecified, uncomplicated; Z79.899 Other long term (current) drug therapy; Z98.890 Other specified postprocedural states
CPT/HCPCS: 36415; 80053; 83690; 85025; 99283

== ENCOUNTER 2024-01-22 00:38 | Emergency (ER) | payer MEDICAID ==
[~2024-01-22] VITALS: Ht 160 cm; Wt 64.8 kg
[~2024-01-22 00:38] MED LIST changes: +FAMO-129 PO
[2024-01-22 00:41] VITALS: BP 116/59; TEMP 98.9
[2024-01-22] MEDS ORDERED: TRAM50TA2 PO (02:59)
[2024-01-22] MEDS: HYDROcodone/acetaminophen 5mg/325mg tablet PO ONE (03:16)
[2024-01-22] MEDS: ibuprofen 200mg tablet PO ONE (03:16)
[2024-01-22 03:24] VITALS: PULSE 87; RESP 15; O2SAT 98
== END 2024-01-22 03:37 | disposition home or self-care (01) ==
LOC: ER 00:39
DX: S92.191A Other fracture of right talus, initial encounter for closed fracture (principal); F17.210 Nicotine dependence, cigarettes, uncomplicated; F15.90 Other stimulant use, unspecified, uncomplicated; Z79.899 Other long term (current) drug therapy; Z98.890 Other specified postprocedural states; W18.39XA Other fall on same level, initial encounter; Y93.89 Activity, other specified; Y92.89 Other specified places as the place of occurrence of the external cause; Y99.8 Other external cause status
CPT/HCPCS: 73610; 73630; 99284; L4360

== ENCOUNTER 2024-05-02 11:20 | Emergency (ER) | payer MEDICAID ==
[~2024-05-02] VITALS: Ht 162.6 cm; Wt 72.7 kg
[2024-05-02 13:27] VITALS: TEMP 99.6
[2024-05-02] MEDS: acetaminophen 325mg tablet PO STA (13:51)
[2024-05-02] MEDS: ibuprofen tablet 400 MG TABLET PO ONE (13:51)
[2024-05-02] MEDS: oseltamivir phos 75mg capsule PO STA (15:10)
[2024-05-02 15:21] VITALS: BP 105/70; PULSE 97; RESP 16; O2SAT 98
[2024-05-03] MEDS ORDERED: OSEL45CA PO (15:31)
== END 2024-05-02 15:27 | disposition home or self-care (01) ==
LOC: ER 11:21
DX: S82.042A Displaced comminuted fracture of left patella, initial encounter for closed fracture (principal); J11.1 Influenza due to unidentified influenza virus with other respiratory manifestations; F15.90 Other stimulant use, unspecified, uncomplicated; Z20.822 Contact with and (suspected) exposure to COVID-19; W18.30XA Fall on same level, unspecified, initial encounter; Y93.89 Activity, other specified; Y92.89 Other specified places as the place of occurrence of the external cause; Y99.8 Other external cause status
CPT/HCPCS: 29505; 36415; 73564; 87502; 87503; 87811; 99284

== ENCOUNTER 2024-05-24 11:57 | Emergency (ER) | payer MEDICAID ==
[~2024-05-24] VITALS: Ht 160 cm; Wt 59.0 kg
[2024-05-24] MEDS: dexamethasone sod phosphate 10mg/ml inj IM STA (13:16)
[2024-05-24] MEDS: HYDROcodone/acetaminophen 5mg/325mg tablet PO ONE (13:18)
[2024-05-24] MEDS: ketorolac trometh 30MG/ML vial 30 MG/ML VIAL IM ONE (13:19)
[2024-05-24] MEDS: ipratropium/albuterol 3ml nebule NEB STA (13:57)
[2024-05-24 14:00] VITALS: PULSE 87; RESP 16; O2SAT 99
[2024-05-24 14:07] VITALS: PULSE 89; RESP 14; O2SAT 99
[2024-05-24] MEDS ORDERED: ALBU8HFA INH (15:54)
[2024-05-24] MEDS ORDERED: PROM50TA3 PO (15:54)
[2024-05-24] MEDS ORDERED: ACET-3068 PO (15:54)
[2024-05-24] MEDS ORDERED: PRED20TA PO (15:54)
[2024-05-24 16:08] VITALS: BP 134/86; PULSE 72; RESP 16; TEMP 98.4; O2SAT 98
== END 2024-05-24 16:11 | disposition home or self-care (01) ==
LOC: ER 11:58
DX: J20.9 Acute bronchitis, unspecified (principal); R07.89 Other chest pain; F15.90 Other stimulant use, unspecified, uncomplicated; Z98.890 Other specified postprocedural states; Z79.899 Other long term (current) drug therapy
CPT/HCPCS: 71045; 94640; 96372; 99283; J1100; 94760

== ENCOUNTER 2024-07-05 13:37 | Outpatient (CLI) | payer MEDICAID ==
[~2024-07-05 13:37] MED LIST changes: +PROM50TA3 PO
--- NOTE | 2024-07-05 14:32 | RADIOLOGY REPORT ---
EXAM: DI CHEST,TWO VIEWS HISTORY: HX RIGHT RIB FRACTURE COMPARISON: None TECHNIQUE: Frontal and lateral views of the chest were performed. FINDINGS: No pneumothorax, pulmonary edema, pleural effusions, or consolidative infiltrates. There is mild cent ral peribronchial thickening. The heart is borderline enlarged. No fractures are identified about th e bony thorax. There is thoracic degenerative disc disease. IMPRESSION: Mild reactive airways disease. The lungs are otherwise clear.
== END 2024-07-05 23:59 | disposition home or self-care (01) ==
LOC: RAD 13:37
PROVIDERS: ATTEND Family Medicine
DX: S22.31XD Fracture of one rib, right side, subsequent encounter for fracture with routine healing (principal); X58.XXXD Exposure to other specified factors, subsequent encounter
CPT/HCPCS: 71046

== ENCOUNTER 2024-09-05 19:21 | Emergency (ER) | payer MEDICAID ==
[~2024-09-05] VITALS: Ht 154.9 cm; Wt 68.8 kg
[2024-09-05 20:28] LABS: MEAN PLATELET VOLUME 8.7 FL (7.4-10.4); RED CELL DISTRIBUTION WIDTH 14.2 % (11.5-14.5)
[2024-09-05 20:34] LABS: LEUKOCYTE ESTERASE ,URINE NEGATIVE (Neg); NITRITES, URINE NEGATIVE (Neg); OCCULT BLOOD,URINE MODERATE (Neg)
[2024-09-05 20:45] LABS: CREATININE 0.73 MG/DL (0.40-0.90); TOTAL CARBON DIOXIDE 28.7 MMOL/L (24-32); eCRCL 62 ML/MIN; eGFR 81 ML/MIN
[2024-09-05 20:50] LABS: MUCUS STRANDS MODERATE /LPF (Neg); SQUAMOUS EPITHELIAL CELL,UR MODERATE /LPF (FEW); UA COLLECTION TYPE CLN CATCH MIDSTREAM
[2024-09-05 20:51] LABS: URIC ACID CRYSTALS FEW /HPF (NEGATIVE)
[2024-09-05] MEDS ORDERED: iohexol 300mg/ml 100ml inj. ONE (22:23)
[2024-09-05] MEDS: normal saline 1000ml 1,000 ML IV STA ×2 (22:41)
[2024-09-05] MEDS: ketorolac trometh 30MG/ML vial 30 MG/ML VIAL IV STA (22:41)
--- NOTE | 2024-09-05 23:12 | RADIOLOGY REPORT ---
Exam: CT CT ABDOMEN PELVIS W/ IV CONTRAST History: RLQ abd pain Comparison Study: CT ABDOMEN PELVIS on DOS: 09/21/22 TECHNIQUE: A digital change management coordinator image was obtained. During the uneventful, intravenous administration of c ontrast material, multislice data acquisition was obtained through the abdomen and pelvis. The data s et was subsequently reconstructed into multiplanar reformats. RADIATION DOSE: CTDI vol 22.76 mGy. DLP 1084.86 mGy.cm Findings: Liver: Unremarkable. Spleen: Unremarkable. Pancreas: Unremarkable. Gallbladder: Contracted in appearance. Adrenals: Unremarkable. Kidneys: Unremarkable. Pelvic Viscera: Unremarkable. Vasculature: Mild atherosclerotic aortoiliac calcifications. Retroperitoneum: Unremarkable. Bowel: No bowel obstruction. Colonic diverticulosis without CT evidence of diverticulitis. The appen rhys is normal. Musculoskeletal: No acute displaced fracture. Partial fusion of L1-2, chronic in appearance. Degenera tive changes of the thoracolumbar spine. Soft tissues: Unremarkable. Lungs: Bibasilar atelectasis/scarring. Impression: 1. No acute abdominopelvic abnormality identified. 2. Incidental findings as detailed.
--- NOTE | 2024-09-05 23:29 | Physician Documentation ---
History of Present Illness ~ Chief Complaint: Abdominal Pain Stated Complaint: "I THINK I SWALLOWED MY TOOTH" Time Seen by MD: 20:29 Primary Medical Doctor: SARAH ALLEN Mode of Arrival: POV, Ambulatory HPI Patient is seen today with complaints of vague abdominal pain as well as she feels her abdominal and abdomen is distended and complaining of possibly swallo wing one of her molars. Patient denies any nausea or vomiting or diarrhea or chest pain or shortness of breath. Patient has no other concern or complaint at this time and denies any fevers or chills or recent illness. Patient states he is having normal bowel movements and denies any urinary symptoms. Medication Reconciliation Allergies: Coded Allergies: No Known Allergies (Unverified , 05/02/24) Scheduled Famotidine (Pepcid), 1 TAB PO Q12H Methocarbamol (Methocarbamol), 1 TAB PO Q8H Promethazine HCl (Promethazine HCl), 1 TAB PO Q12H Past Medical History Past Medical History: Pneumonia, Hepatitis A, *MUSCULOSKELETAL* Past Surgical History: Patient History: FH: brain cancer FATHER, FH: colon cancer Aunte, FH: lung cancer FATHER, FHx: diabetes mellitus FATHER, MOTHER, Alcohol Use: None Drug Use: methamphetamine Lives In: Home Review of Systems Constitutional: Denies: chills, fever, weakness Eyes: Denies: pain, blurred vision ENT: Denies: ear pain, nose pain, throat pain, mouth pain Respiratory: Denies: cough, shortness of breath Cardiovascular: Denies: chest pain, palpitations Gastrointestinal: Denies: abdominal pain, nausea, vomiting Genitourinary: Denies: burning, dysuria Female Genitalia: Denies: vaginal discharge, pelvic pain Neurological: Denies: headache, dizziness Musculoskeletal: Denies: pain, swelling Integumentary: Denies: rash, lesions Allergic/Immunologic: Denies: hives, itching Hematologic/Lymphatic: Denies: no symptoms reported Psychiatric: Denies: depression, anxiety Physical Exam Vital Signs: Temperature: 98.4, Heart Rate: 60, Respiratory Rate: 16, BP: 92/48, Pulse Oximetry: 97, Weight: 68.750 Oxygen Flow Rate: 0 Physical Exam General: Awake and Alert, no acute distress. HEENT: Conjunctiva pink, Sclera clear, Mucus Membranes moist. Neck: Supple without masses and tenderness. Resp: Unlabored. Lungs clear to auscultation bilaterally. Heart: Regular Rate and rhythm, normal S1 and S2 without murmur, rub or gallop. Abdomen: Abdomen on exam is soft, nondistended, some tenderness in the right lower quadrant with no rebound tenderness and minimal guarding. Extremities: No cyanosis,clubbing or edema. Skin: Warm and Dry. Progress Results/Orders Results/Orders Orders - RADHA BELL PAC Saline Lock (09/05/24 ) Ct Abdomen Pelvis (09/05/24 22:25) Completed Orders - RADHA BELL R PAC Lacticsepsis (09/05/24 22:09) Procalcitonin (09/05/24 22:09) Ct Abdomen Pelvis (09/05/24 22:25) Normal Saline 1000ml (0.9% Sodium Chlori (09/05/24 22:09) Normal Saline 1000ml (0.9% Sodium Chlori (09/05/24 22:09) Ketorolac Trometh 30mg/Ml Vial (Toradol (09/05/24 22:09) Iohexol 300mg/Ml 100ml Inj. (Omnipaque-3 (09/05/24 22:23) Medications Received in ER Medications (Trade) Dose Ordered Sig/Vidya Route PRN Reason Start Time Stop Time Status Last Admin Dose Admin Sodium Chloride 1,000 ml @ 1,000 mls/hr ONCE STAT IV 09/05/24 22:09 09/05/24 23:08 DC 09/05/24 22:41 1,000 MLS/HR Sodium Chloride 1,000 ml @ 1,000 mls/hr ONCE STAT IV 09/05/24 22:09 09/05/24 23:08 DC 09/05/24 22:41 1,000 MLS/HR (Toradol inj. 30mg/ml) 30 mg ONCE STAT IV 09/05/24 22:09 09/05/24 22:13 DC 09/05/24 22:41 30 MG Vital Signs 09/05/24 09/05/24 09/05/24 09/05/24 19:26 20:23 20:34 22:07 Temp 98.4 Pulse 80 70 69 Resp 16 16 16 16 B/P (MAP) 103/46 90/52 (65) 87/54 (65) Pulse Ox 98 98 98 O2 Flow Rate 0 0 0 09/05/24 09/05/24 22:13 22:41 Pulse 60 Resp 16 16 B/P (MAP) 92/48 (63) Pulse Ox 97 O2 Flow Rate 0 Laboratory Tests Test 09/05/24 19:33 09/05/24 19:42 09/05/24 22:45 Urine Specimen Description Cln catch midstream Urine Color Yellow Urine Clarity Clear Urine pH 6.0 Urine Specific [place] 1.025 Urine Protein Negative Urine Glucose (UA) Negative Urine Ketones Negative Urine Occult Blood Moderate H Urine Nitrite Negative Urine Bilirubin Negative Urine Urobilinogen 0.2 Urine Leukocyte Esterase Negative Urine RBC 10-20 Urine WBC 0-4 Urine Squamous Epithelial Cells Moderate Urine Uric Acid Crystals Few Urine Bacteria Few Urine Mucus Moderate Urine Culture Indicated Not ind Volume Urine Centrifuged 10 ml Urine Comment White Blood Count 9.2 Red Blood Count 4.07 L Hemoglobin 12.6 Hematocrit 37.4 Mean Corpuscular Volume 91.9 Mean Corpuscular Hemoglobin 31.1 H Mean Corpuscular Hemoglobin Concent 33.8 Red Cell Distribution Width 14.2 Platelet Count 321 Mean Platelet Volume 8.7 Neutrophils (%) (Auto) 63.3 Lymphocytes (%) (Auto) 25.6 Monocytes (%) (Auto) 5.5 Eosinophils (%) (Auto) 4.8 Basophils (%) (Auto) 0.8 Neutrophils # (Auto) 5.8 Lymphocytes # (Auto) 2.4 Monocytes # (Auto) 0.5 Eosinophils # (Auto) 0.4 Basophils # (Auto) 0.1 CBC Comment Sodium Level 142 Potassium Level 3.8 Chloride Level 107 Carbon Dioxide Level 28.7 Anion Gap 6 L Blood Urea Nitrogen 14 Creatinine 0.73 Estimated GFR/1.73 m2 81 BUN/Creatinine Ratio 19.2 Glucose Level 82 Calcium Level 8.5 Total Bilirubin 0.2 Aspartate Amino Transf (AST/SGOT) 25 Alanine Aminotransferase (ALT/SGPT) 31 Alkaline Phosphatase 117 H Total Protein 7.0 Albumin 3.6 Globulin 3.4 Albumin/Globulin Ratio 1.1 Lipase 51 Procalcitonin 0.05 Chemistry Comments Lactic Acid Level 0.5 EKG/XRAY/CT/US/VASC/MRI CT : Impression CAT SCAN Patient: VENKAT BORREGO Medical Record: [id number] HOSPITAL : 1965, Age: 59 Sex: Female Location: ER Patient Status: [facility] ER Service Date/Time: 09/05/242224 Ordering Physician: RADHA BELL PAC Exam: CT ABDOMEN PELVIS Exam: CT CT ABDOMEN PELVIS W/ IV CONTRAST History: RLQ abd pain Comparison Study: CT ABDOMEN PELVIS on DOS: 09/21/22 TECHNIQUE: A digital outer diameter grinder tool image was obtained. During the uneventful, intravenous administration of contrast material, multislice data acquisition was obtained through the abdomen and pelvis. The data set was subsequently reconstructed into multiplanar reformats. RADIATION DOSE: CTDI vol 22.76 mGy. DLP 1084.86 mGy.cm Findings: Liver: Unremarkable. Spleen: Unremarkable. Pancreas: Unremarkable. Gallbladder: Contracted in appearance. Adrenals: Unremarkable. Kidneys: Unremarkable. Pelvic Viscera: Unremarkable. Vasculature: Mild atherosclerotic aortoiliac calcifications. Retroperitoneum: Unremarkable. Bowel: No bowel obstruction. Colonic diverticulosis without CT evidence of diverticulitis. The appendix is normal. Musculoskeletal: No acute displaced fracture. Partial fusion of L1-2, chronic in appearance. Degenerative changes of the thoracolumbar spine. Soft tissues: Unremarkable. Lungs: Bibasilar atelectasis/scarring. Impression: 1. No acute abdominopelvic abnormality identified. 2. Incidental findings as detailed. Electronically Signed by:JAYDE VILLEDA MD Date & Time: 09/05/242308 Dictated by: JADYE VILLEDA MD Dictation date and time: 09/05/242308 Primary Care Provider: NO PRIMARY CARE PROVIDER cc: RADHA BELL PAC ~ Medical Decision Making Findings Patient is seen today with complaints of vague abdominal pain as well as she feels her abdominal and abdomen is distended and complaining of possibly swallowing one of her molars. Patient denies any nausea or vomiting or diarrhea or chest pain or shortness of breath. Patient has no other concern or complaint at this time and denies any fevers or chills or recent illness. Patient states he is having normal bowel movements and denies any urinary symptoms. Patient had laboratory findings that were largely unremarkable and CT scan of abdomen that was also unremarkable. Patient will follow up with primary care in 2-5 days if no better as needed sooner. Return to ED with any worsening, concerning or changing symptoms. Patient advised that if she did swallow her tooth that will pose no danger and should pass through without any incident. Departure Disposition: HOME / SELF CARE / HOMELESS Impression: Primary Impression: Abdominal pain Qualified Codes: R10.84 - Generalized abdominal pain Condition: Stable Discharge Instructions: Abdominal Pain (Nonspecific) Additional Instructions: Patient had laboratory findings that were largely unremarkable and CT scan of abdomen that was also unremarkable. Patient will follow up with primary care in 2-5 days if no better as needed sooner. Return to ED with any worsening, concerning or changing symptoms. Patient advised that if she did swallow her tooth that will pose no danger and should pass through without any incident. Referrals: NO PRIMARY CARE PROVIDER (PCP) Signature Scribe Signature: No scribe Attestation: No scribe RADHA BELL PAC Sep 05, 2024 23:29
[2024-09-06] VITALS: BP 113/87; PULSE 66; RESP 16; TEMP 98.4; O2SAT 100
== END 2024-09-06 | disposition home or self-care (01) ==
LOC: ER 19:21
DX: R10.31 Right lower quadrant pain (principal); F15.90 Other stimulant use, unspecified, uncomplicated
CPT/HCPCS: 36415; 74177; 80053; 81001; 83605; 83690; 84145; 85025; 96361; 96374; 99285; J1885; J7030; Q9967